=== PATIENT | female | born 1945 | race Caucasian/White ===

== ENCOUNTER 2020-04-10 11:39 | Inpatient (IN) ==
[2020-04-10 13:55] LABS: Basophils # (Auto) 0.01 K/mcL (0.00-0.30); Basophils % (Auto) 0.4 % (0.0-2.0); Eosinophils # (Auto) 0.02 K/mcL (0.00-0.70); Eosinophils % (Auto) 0.7 % (0.0-7.0); Hematocrit 38.2 % (34.1-44.9); Hemoglobin 12.1 g/dL (11.2-15.7); Lymphocytes # (Auto) 0.35 K/mcL (1.50-4.80); Lymphocytes % (Auto) 12.4 % (15.5-49.0); Mean Cell Volume 89.7 fL (80.0-100.0); Mean Corpuscular HGB Conc 31.7 g/dL (31.0-36.0); Mean Platelet Volume 9.8 fL (7.4-10.4); Monocytes # (Auto) 0.27 K/mcL (0.10-0.90); Monocytes % (Auto) 9.5 % (1.0-12.0); Platelet Count 190 K/mcL (140-440); RBC 4.26 M/mcL (3.59-5.38); Red Cell Distribution Width 15.4 % (11.5-14.5); WBC 2.8 K/mcL (4.50-11.00)
[2020-04-10 14:23] LABS: ALT/SGPT 11 U/l (0-40); AST/SGOT 32 U/l (0-37); Albumin 2.9 gm/dL (3.2-5.2); Albumin/Globulin Ratio 0.8 (1.0-2.3); Alkaline Phosphatase 68 U/L (39-117); Bilirubin,Total 0.4 mg/dL (0.0-1.0); Blood Urea Nitrogen 11 mg/dl (8-23); Calcium 8.7 mg/dl (8.6-10.4); Carbon Dioxide 21 mmol/L (22-30); Chloride 99 mmol/L (96-108); Globulin 3.5 gm/dL (2.2-3.7); Glomerular Filtration Rate 90; Glucose 76 mg/dL (70-105)
[2020-04-10 14:59] LABS: Appearance,Urine CLEAR; Bilirubin,Urine NEG (NEG); Color,Urine YELLOW; Glucose,Urine (UA) NEGATIVE (NEG); Ketones,Urine 80 mg/dL (NEG); Leukocyte Esterase,Urine NEG /uL (NEG); Nitrate,Urine NEG (NEG); Protein,Urine NEG (NEG); Specific Gravity,Urine 1.021 (1.000-1.035); Urine Blood NEG mg/dL (<0.03); Urobilinogen,Urine NEG (NEG)
--- NOTE | 2020-04-10 15:00 | XRay Report ---
CLINICAL INFORMATION: weakness COMPARISON: None. TECHNIQUE: PA and Lateral views FINDINGS: The heart size, mediastinum and pulmonary vessels are unremarkable. The lungs are clear. There are no effusions. The bones and soft tissues are within normal limits. IMPRESSION: Normal chest. Interpreted and Authenticated by: Sharif Trejo 04/10/20
--- NOTE | 2020-04-10 17:09 | Emergency Department Note ---
HPI General Chief complaint: Extremity Injury, Lower Stated complaint: left hip pain Time Seen by Provider: 04/10/20 11:50 Source: patient and EMS Mode of arrival: EMS Limitations: no limitations History of Present Illness HPI Narrative: Narrative: 74-year-old female presents with vague complaints. States the only thing that is really bothering her is a sore on her left heel. Her daughter reports that she was discharged from [facility] yesterday. 5 weeks ago she had her left hip repaired. Daughter feels like she was not near ready to come home even though [facility] told her that she was. They told her that she can ambulate 60 to 80 feet and the daughter states she cannot stand or ambulate at all. She also seems generally weak. daughter is also very upset that she developed this pressure ulcer to her left heel about 10 days ago while at the halfway and they just told her about yesterday. She states that heels very sore and unsure if that is why she cannot stand or her left hip seems to be rot ating so that she is also concerned about the hip. Daughter states that there is just no way that she can take care of her at home and this travel trailer when she cannot ambulate and is so weak. She did have one episode of diarrhea last night. No fever or chills. No nausea or vomiting. No cough or cold symptoms. Daughter does state that there were several positive COVID cases at [facility] but they reassured her that they tested her prior to sending her home and that she was negative but the daughter does not know for sure. Related Data Home Medications Medication Instructions Recorded Confirmed ondansetron 4 mg SL Q4HP PRN 04/18/15 03/10/20 bisacodyl 5 mg PO DAILYP PRN 01/26/19 03/10/20 cyanocobalamin (vitamin B-12) 1,000 mcg IM MONTHLY 01/26/19 03/10/20 magnesium hydroxide [Milk of 30 ml PO DAILY 01/26/19 03/10/20 Magnesia] docusate sodium 50 mg PO HS 03/04/20 03/10/20 acetaminophen 650 mg PO Q6H PRN 03/10/20 03/10/20 lidocaine [Blue-Emu Lidocaine 1 patch TOPICAL Q24H PRN 03/10/20 03/10/20 Patch] oxycodone 5 - 10 mg PO BID 03/10/20 03/10/20 oxycodone 5 - 10 mg PO Q4H PRN 03/10/20 03/10/20 Previous Rx's Medication Instructions Recorded aspirin 325 mg PO BID #60 tab 03/04/20 docusate sodium 100 mg PO BID #60 cap 03/04/20 Allergies Allergy/AdvReac Type Severity Reaction Status Date / Time iodine Allergy Severe Anaphylaxis Verified 04/10/20 11:47 Penicillins [PENICILLINS] Allergy Severe Anaphylaxis Verified 04/10/20 11:47 adhesive tape Allergy Intermediate Blister Verified 04/10/20 11:47 red dye [RED DYE] Allergy Mild HIVES Verified 04/10/20 11:47 prochlorperazine AdvReac Severe Other Verified 04/10/20 11:47 Review of Systems ROS ROS Narrative: Narrative: All systems ED: reviewed and negative except as stated. [facility] Narrative Patient History Narrative: Narrative: Medical/Surgical/Family History All Active Problems (Updated 04/10/20 @ 19:13 by ROGELIO Banks) Post-operative pain (Acute) History of total left hip arthroplasty (Acute) History of cerebrovascular accident (Acute) Pain of left heel (Acute) Pressure ulcer of foot (Acute) COVID-19 (Acute) Generalized weakness (Acute) CVA (cerebral vascular accident) (Acute) Multiple sclerosis (Acute) Lymphoma of body of stomach (Acute) Anemia (Acute) Medical History Anemia (Acute) CVA (cerebral vascular accident) (Acute) Lymphoma of body of stomach (Acute) Multiple sclerosis (Acute) Social History Smoking Status: Never smoker Alcohol Intake Frequency: does not drink Substance Use: does not use Exam Narrative Narrative: Narrative: General Limitations: no limitations General appearance: Present alert (Alert to person, place, and time and vaguely situation but does get confused at times. Is very poor historian.) Head Head: Present atraumatic and normocephalic Eye Eye: Present normal appearance; Absent conjunctival injection ENT ENT: Present normal exam, normal oropharynx, mucous membranes moist, TM's normal bilaterally and normal external ear exam Neck Neck: Present normal inspection and trachea midline; Absent lymphadenopathy Chest Chest: Present symmetric chest wall rise Respiratory Respiratory: Present normal lung sounds bilaterally; Absent respiratory distress, rales/crackles, wheezes, stridor and accessory muscle use Cardiovascular Cardiovascular: Present regular rate and normal heart sounds Extremities Extremities: Present normal capillary refill; Absent normal inspection (Left posterior heel does have a 2 cm in diameter stage II pressure ulcer of that is slightly blackened skin. Culture obtained, sent, is pending. There is no red ness or drainage. No warmth. Skin blanches immediately. No other rashes or lesions. Left hip with some mild tenderness with palpation. Skin is pink warm dry and intact. No redness or warmth. No drainage. Healing well.) Neurological Neurological: Present alert Psychiatric Psychiatric: Present normal affect and normal mood Skin Skin: Present warm (WNL), dry and intact Course Course Course Narrative: When the daughter brought her she stated she would be back within an hour and never returned. After several hours we did get a hold of her on the phone. She is crying and states she [place] cannot take care of her mom. Danitza with psychotherapist social worker has been involved. We have called all over. [facility] may consider taking her but she needs to have a COVID test to show its negative prior to admission. They state that they will get in contact with the family tomorrow. All of her labs are unremarkable including CBC, CMP, urinalysis. There is no acute findings on chest x-ray or hip x-ray. After 7 hours we finally got the daughter to come to the hospital so that we could further discuss this with her. Her and her fianc arrived and are very aggressive, angry, and upset and states the absolutely cannot take care of her at home. They are refusing to take her home. They do not understand why we cannot admit her because of a positive COVID test. We discussed with them that there is no qualifications to meet for inpatient criteria and the only way that she could possibly stay as if they are agreeable to pay [id number]. They state they are and psychotherapist social worker is having them signed in agreement. We have requested a bed and will discuss with the hospitalist if this admission is possible. They are absolutely insistent that they cannot take her home under any circumstances. She does note that she normally gets paid by the state to take care of her mom but she just cannot do it. The daughter lives in a 26 foot travel trailer and feels like it is not safe for her mom. They were set up and do have home health as well as physical therapy coming tomorrow and the daughter still refuses. At 1900 we did put a call into the greenhouse superintendent to see if we can possibly admit her as more of a social service admit with their agreement to pay for room and board until they can come up with further plan. At 194, I did speak with Dr. Rangel, hospitalist who agrees to accept this patient, observation MedSurg Vital Signs Vital signs: Vital Signs Temperature 98.0 F 04/10/20 11:39 Pulse Rate 80 04/10/20 11:39 Respiratory Rate 16 04/10/20 11:39 Blood Pressure 116/63 04/10/20 11:39 Pulse Oximetry (%) 97 04/10/20 11:39 Temperature 99.7 F H 04/10/20 18:21 Pulse Rate 78 04/10/20 18:46 Respiratory Rate 16 04/10/20 17:36 Blood Pressure 134/69 04/10/20 18:46 Pulse Oximetry (%) 96 04/10/20 18:46 MDM MDM Narrative Medical decision making narrative: Narrative: Lab Data Result diagrams: 04/10/20 13:15 04/10/20 13:15 Labs: Lab Results 04/10/20 04/10/20 04/10/20 Range/Units 13:15 13:15 13:15 WBC 2.8 L (4.50-11.00) K/mcL RBC 4.26 (3.59-5.38) M/mcL Hgb 12.1 (11.2-15.7) g/dL Hct 38.2 (34.1-44.9) % MCV 89.7 (80.0-100.0) fL MCH 28.4 (26.0-34.0) pg MCHC 31.7 (31.0-36.0) g/dL RDW 15.4 H (11.5-14.5) % Plt Count 190 (140-440) K/mcL MPV 9.8 (7.4-10.4) fL Gran % 77.0 (38.0-78.0) % Lymph % (Auto) 12.4 L (15.5-49.0) % [place] % (Auto) 9.5 (1.0-12.0) % Eos % (Auto) 0.7 (0.0-7.0) % Baso % (Auto) 0.4 (0.0-2.0) % Gran # 2.18 (1.80-8.00) K/mcL Lymph # (Auto) 0.35 L (1.50-4.80) K/mcL [place] # (Auto) 0.27 (0.10-0.90) K/mcL Eos # (Auto) 0.02 (0.00-0.70) K/mcL Baso # (Auto) 0.01 (0.00-0.30) K/mcL VBG Lactic Acid 0.8 (0.5-2.0) mmol/L Sodium 135 (133-145) mmol/L Potassium 3.9 (3.3-5.1) mmol/L Chloride 99 (96-108) mmol/L Carbon Dioxide 21 L (22-30) mmol/L Anion Gap 15.0 (8-16) BUN 11 (8-23) mg/dl Creatinine 0.6 (0.6-1.1) mg/dl GFR Calculation 90 Glucose 76 (70-105) mg/dL Calcium 8.7 (8.6-10.4) mg/dl Total Bilirubin 0.4 (0.0-1.0) mg/dL AST 32 (0-37) U/l ALT 11 (0-40) U/l Alkaline Phosphatase 68 (39-117) U/L Total Protein 6.4 (5.9-8.4) gm/dL Albumin 2.9 L (3.2-5.2) gm/dL Globulin 3.5 (2.2-3.7) gm/dL Albumin/Globulin Ratio 0.8 L (1.0-2.3) Urine Color Urine Appearance Urine pH (5.0-9.0) Ur Specific [place] (1.000-1.035) Urine Protein (NEG) mg/dL Urine Glucose (UA) (NEG) mg/dL Urine Ketones (NEG) mg/dL Urine Occult Blood (<0.03) mg/dL Urine Nitrate (NEG) Urine Bilirubin (NEG) mg/dL Urine Urobilinogen (NEG) mg/dL Ur Leukocyte Esterase (NEG) /uL 04/10/20 Range/Units 13:45 WBC (4.50-11.00) K/mcL RBC (3.59-5.38) M/mcL Hgb (11.2-15.7) g/dL Hct (34.1-44.9) % MCV (80.0-100.0) fL MCH (26.0-34.0) pg MCHC (31.0-36.0) g/dL RDW (11.5-14.5) % Plt Count (140-440) K/mcL MPV (7.4-10.4) fL Gran % (38.0-78.0) % Lymph % (Auto) (15.5-49.0) % [place] % (Auto) (1.0-12.0) % Eos % (Auto) (0.0-7.0) % Baso % (Auto) (0.0-2.0) % Gran # (1.80-8.00) K/mcL Lymph # (Auto) (1.50-4.80) K/mcL [place] # (Auto) (0.10-0.90) K/mcL Eos # (Auto) (0.00-0.70) K/mcL Baso # (Auto) (0.00-0.30) K/mcL VBG Lactic Acid (0.5-2.0) mmol/L Sodium (133-145) mmol/L Potassium (3.3-5.1) mmol/L Chloride (96-108) mmol/L Carbon Dioxide (22-30) mmol/L Anion Gap (8-16) BUN (8-23) mg/dl Creatinine (0.6-1.1) mg/dl GFR Calculation Glucose (70-105) mg/dL Calcium (8.6-10.4) mg/dl Total Bilirubin (0.0-1.0) mg/dL AST (0-37) U/l ALT (0-40) U/l Alkaline Phosphatase (39-117) U/L Total Protein (5.9-8.4) gm/dL Albumin (3.2-5.2) gm/dL Globulin (2.2-3.7) gm/dL Albumin/Globulin Ratio (1.0-2.3) Urine Color Yellow Urine Appearance Clear Urine pH 5.0 (5.0-9.0) Ur Specific [place] 1.021 (1.000-1.035) Urine Protein Neg (NEG) mg/dL Urine Glucose (UA) Negative (NEG) mg/dL Urine Ketones 80 A (NEG) mg/dL Urine Occult Blood Neg (<0.03) mg/dL Urine Nitrate Neg (NEG) Urine Bilirubin Neg (NEG) mg/dL Urine Urobilinogen Neg (NEG) mg/dL Ur Leukocyte Esterase Neg (NEG) /uL Discharge Plan Patient/Caregiver Discharge Instructions Pt seen by DISTRIBUTION CENTER ADMINISTRATOR/PA only: Yes Clinical Impression: Pain of left heel, Pressure ulcer of foot, COVID-19, Generalized weakness Instructions: COVID-19, Wound Healing and Your Diet (ED), Acute Wounds (ED) Activity Restrictions/Additional Instructions: Change the dressing to left heal within the next 3 days. A referral to Dr. Diaz with wound care has been completed. Please call their office to schedule an appointment. You should follow-up with your primary care provider within the next few days for recheck and to try to help establish care at a detention facility if necessary. Patient Disposition: Xfer As Outpt/Obs ([facility]) Condition: Fair Follow up with: Sonia Reilly ARNP [Primary Care Provider] - Prescriptions: No Action ondansetron 4 MG tablet,disintegrating 4 mg SL Q4HP PRN (Reason: Nausea) RF: 0 magnesium hydroxide [Milk of Magnesia] 30 ML suspension 30 ml PO DAILY RF: 0 cyanocobalamin (vitamin B-12) 1,000 MCG/ML solution 1,000 mcg IM MONTHLY RF: 0 bisacodyl 5 MG tablet 5 mg PO DAILYP PRN (Reason: Constipation) RF: 0 docusate sodium 50 mg Capsule 50 mg PO HS RF: 0 aspirin 325 mg Tablet,Delayed Release (Dr/Ec) 325 mg PO BID Qty: 60 RF: 0 docusate sodium 100 mg Capsule 100 mg PO BID Qty: 60 RF: 0 acetaminophen 325 mg Tablet 650 mg PO Q6H PRN (Reason: prophylaxis) RF: 0 lidocaine [Blue-Emu Lidocaine Patch] 4 % Adhesive Patch,Medicated 1 patch TOPICAL Q24H PRN (Reason: Pain) RF: 0 oxycodone 5 mg Tablet 5 - 10 mg PO Q4H PRN (Reason: Pain) RF: 0 oxycodone 5 mg tablet 5 - 10 mg PO BID RF: 0
--- NOTE | 2020-04-10 17:58 | XRay Report ---
CLINICAL INFORMATION: left hip pain, post op, can't bear weight COMPARISON: 03/04/2020 FINDINGS: Left total hip prostheses is in stable alignment without loosening or infection. Mild degenerative change in the right hip and both SI joints noted. No osseous abnormality. Soft tissues are normal. IMPRESSION: Negative exam. Consider septic arthritis Interpreted and Authenticated by: Sharif Trejo 04/10/20
--- NOTE | 2020-04-10 20:16 | Internal Med History&Physical ---
HPI History of Present Illness Patient information: Note initiated : 04/10/20 at 8:08 pm Service Date, if different from initiated Date: [] Patient: Erin Shore a 74 y/o F admitted on for left hip pain. Chief Complaint: [] History of present illness: Ms. Shore is a 74 year old F Presents to the ED with generalized weakness and inability to care for self at home. Patient was discharged from [facility] yesterday after 5 weeks and there after a left hip replacement. Daughter says patient is to be doing well for some time but in past week she just was not doing that well with appetite weakness and some confusion. Patient does have peers a history of vascular dementia and has had several strokes in the past. She also has multiple sclerosis and follows with Dr. Driscoll. Because she came from [facility] test was done and was positive. She denies any cough shortness of breath chest pain. Chest x-ray unremarkable. She does complain of some vague abdominal pain Periumbilical and was made worse by kayleigh crackers. Poor appetite. Has had some intermittent constipation with diarrhea from narcotics and bowel regimen. Case management was working with the patient ED and patient was unable to be placed and daughter feels patient is unsafe at home with her and her trailer. Afraid of her falling and unable to handle her. Review of Systems: Pertinent positives above. Denies headache/nausea/vomiting/chest or abdominal pain/cough/dyspnea. Remaining 10 point review of system reviewed negative PFSH PFSH All Active Problems (Updated 04/10/20 @ 19:13 by ROGELIO Banks) Post-operative pain (Acute) History of total left hip arthroplasty (Acute) History of cerebrovascular accident (Acute) Pain of left heel (Acute) Pressure ulcer of foot (Acute) COVID-19 (Acute) Generalized weakness (Acute) CVA (cerebral vascular accident) (Acute) Multiple sclerosis (Acute) Lymphoma of body of stomach (Acute) Anemia (Acute) Medical History Anemia (Acute) CVA (cerebral vascular accident) (Acute) Lymphoma of body of stomach (Acute) Multiple sclerosis (Acute) Social History (Updated 04/10/20 @ 20:11 by Tin Rangel DO) smoking status: Never smoker alcohol intake frequency: does not drink substance use type: does not use additional history: Past surgical history: J-tube placement Throat surgery Hysterectomy MEDS/ALLERGIES Home Medications and Allergies Home Medications Medication Instructions Recorded Confirmed Type ondansetron 4 mg SL Q4HP PRN 04/18/15 03/10/20 History bisacodyl 5 mg PO DAILYP PRN 01/26/19 03/10/20 History cyanocobalamin (vitamin B-12) 1,000 mcg IM MONTHLY 01/26/19 03/10/20 History magnesium hydroxide [Milk of 30 ml PO DAILY 01/26/19 03/10/20 History Magnesia] aspirin 325 mg PO BID #60 tab 03/04/20 03/10/20 Rx docusate sodium 50 mg PO HS 03/04/20 03/10/20 History docusate sodium 100 mg PO BID #60 cap 03/04/20 03/10/20 Rx acetaminophen 650 mg PO Q6H PRN 03/10/20 03/10/20 History lidocaine [Blue-Emu Lidocaine 1 patch TOPICAL Q24H PRN 03/10/20 03/10/20 History Patch] oxycodone 5 - 10 mg PO BID 03/10/20 03/10/20 History oxycodone 5 - 10 mg PO Q4H PRN 03/10/20 03/10/20 History Allergies Allergy/AdvReac Type Severity Reaction Status Date / Time iodine Allergy Severe Anaphylaxis Verified 04/10/20 11:47 Penicillins [PENICILLINS] Allergy Severe Anaphylaxis Verified 04/10/20 11:47 adhesive tape Allergy Intermediate Blister Verified 04/10/20 11:47 red dye [RED DYE] Allergy Mild HIVES Verified 04/10/20 11:47 prochlorperazine AdvReac Severe Other Verified 04/10/20 11:47 EXAM Constitutional Vitals: Temp Pulse Resp BP Pulse Ox 99.7 F H 78 16 134/69 96 04/10/20 18:21 04/10/20 18:46 04/10/20 17:36 04/10/20 18:46 04/10/20 18:46 Exam: General: Awake, No acute Distress Eyes/N/T: EOMI, PERRL, dry MM Head/Neck: neck supple, normocephalic atraumatic CV: RRR, No murmurs, normal s1/s2 Pulm: Clear b/l, no wheezing/rhonchi/rales Abd: soft, nontender, +BS x4 Ext: no clubbing/cyanosis/edema Neuro: Awake, moves all extremities, follows commands, mild chronic left-sided weakness from previous stroke, sensations intact Skin: warm/dry DATA Data Completed and Pending Labs: Labs from last 24 hours 04/10/20 04/10/20 04/10/20 13:45 13:15 13:15 WBC RBC Hgb Hct MCV MCH MCHC RDW Plt Count MPV Gran % Lymph % (Auto) [place] % (Auto) Eos % (Auto) Baso % (Auto) Gran # Lymph # (Auto) [place] # (Auto) Eos # (Auto) Baso # (Auto) VBG Lactic Acid 0.8 Sodium 135 Potassium 3.9 Chloride 99 Carbon Dioxide 21 L Anion Gap 15.0 BUN 11 Creatinine 0.6 GFR Calculation 90 Glucose 76 Calcium 8.7 Total Bilirubin 0.4 AST 32 ALT 11 Alkaline Phosphatase 68 Total Protein 6.4 Albumin 2.9 L Globulin 3.5 Albumin/Globulin Ratio 0.8 L Urine Color Yellow Urine Appearance Clear Urine pH 5.0 Ur Specific [place] 1.021 Urine Protein Neg Urine Glucose (UA) Negative Urine Ketones 80 A Urine Occult Blood Neg Urine Nitrate Neg Urine Bilirubin Neg Urine Urobilinogen Neg Ur Leukocyte Esterase Neg 04/10/20 13:15 WBC 2.8 L RBC 4.26 Hgb 12.1 Hct 38.2 MCV 89.7 MCH 28.4 MCHC 31.7 RDW 15.4 H Plt Count 190 MPV 9.8 Gran % 77.0 Lymph % (Auto) 12.4 L [place] % (Auto) 9.5 Eos % (Auto) 0.7 Baso % (Auto) 0.4 Gran # 2.18 Lymph # (Auto) 0.35 L [place] # (Auto) 0.27 Eos # (Auto) 0.02 Baso # (Auto) 0.01 VBG Lactic Acid Sodium Potassium Chloride Carbon Dioxide Anion Gap BUN Creatinine GFR Calculation Glucose Calcium Total Bilirubin AST ALT Alkaline Phosphatase Total Protein Albumin Globulin Albumin/Globulin Ratio Urine Color Urine Appearance Urine pH Ur Specific [place] Urine Protein Urine Glucose (UA) Urine Ketones Urine Occult Blood Urine Nitrate Urine Bilirubin Urine Urobilinogen Ur Leukocyte Esterase A/P Narrative A/P Narrative: A: *Generalized weakness/deconditioning/debility/inability to care for self at home: *Left hip replacement 1 month ago: Has been at SNF since then *COVID-19 (+): Incidental finding, testing done for placement protocol -on room air, cxr unremarkable *Dementia, likely vascular, mild: h/o several CVA's -has had some intermittent confusion per daughter in past week. *MS: follow with Dr. Driscoll *CVA, multiple, w/ residual left-sided weakness, mild: *h/o gastric B-cell lymphoma/Pancytopenia: Has followed with heme-onc in the past *?GERD: *Left heel pressure ulcer * P: -pt/ot -CM for placement -antacids/H2 -covid precautions -wound care, heel monitor -ppx: Lovenox Full code Time Spent With Patient Time: Total time spent is greater than 50% in coordination of care (as documented) at patient's floor/unit and/or counseling patient:
[2020-04-10] MEDS ORDERED: IPRATROPIUM/ALBUTEROL 3 ML AMPUL.NEB NEB PRN (21:48)
[2020-04-10] MEDS ORDERED: MAGNESIUM SULFATE 2 GM/50 ML BAG IV PRN (21:48)
[2020-04-10] MEDS ORDERED: POLYETHYLENE GLYCOL 3350 17 GM PACKET PO PRN (21:48)
[2020-04-10] MEDS ORDERED: 0.9 % SODIUM CHLORIDE 1,000 ML IV SCH (21:48)
[2020-04-10] MEDS ORDERED: ACETAMINOPHEN 325 MG TABLET PO PRN (21:48)
[2020-04-10] MEDS ORDERED: ONDANSETRON 4 MG/2 ML VIAL IV PRN (21:48)
[2020-04-10] MEDS ORDERED: POTASSIUM CHLORIDE 40 MEQ in DEXTROSE 5% IN WATER 500 ML IV PRN (21:48)
[2020-04-10] MEDS ORDERED: POTASSIUM CHLORIDE 20 MEQ TABLET PO PRN ×2 (21:48)
[2020-04-10] MEDS ORDERED: CALCIUM CARBONATE 500 MG TAB.CHEW CHEWED PRN (21:48)
[2020-04-10] MEDS ORDERED: SENNOSIDES 1 TABLET PO PRN (21:48)
[2020-04-10] MEDS ORDERED: CALCIUM CARBONATE 500 MG TAB.CHEW CHEWED ONE (21:48)
[2020-04-10] MEDS ORDERED: MAG HYDROX/AL HYDROX/SIMETH 30 ML ORAL.SUSP PO PRN (21:48)
[2020-04-10] MEDS: DOCUSATE SODIUM 100 MG CAPSULE PO SCH (23:47)
[2020-04-10] MEDS: 0.9 % SODIUM CHLORIDE 10 ML SYRINGE IV SCH (23:47)
[2020-04-11] MEDS: 0.9 % SODIUM CHLORIDE 10 ML SYRINGE IV SCH ×4 (04:34→20:44)
[2020-04-11] MEDS: PANTOPRAZOLE 40 MG TABLET PO SCH (07:04)
--- NOTE | 2020-04-11 07:21 | Internal Med Progress Note ---
SUBJECTIVE Subjective Patient information: Note initiated : 04/11/20 at 7:20 am Service Date, if different from initiated Date: [] Patient: Erin Shore 74 y/o F admitted on 04/10/20 for left hip pain. Chief Complaint: [] Interval history: History of present illness: Ms. Shore is a 74 year old F Presents to the ED with generalized weakness and inability to care for self at home. Patient was discharged from [facility] yesterday after 5 weeks and there after a left hip replacement. Daughter says patient is to be doing well for some time but in past week she just was not doing that well with appetite weakness and some confusion. Patient does have peers a history of vascular dementia and has had several strokes in the past. She also has multiple sclerosis and follows with Dr. Driscoll. Because she came from [facility] test was done and was positive. She denies any cough shortness of breath chest pain. Chest x-ray unremarkable. She does complain of some vague abdominal pain Periumbilical and was made worse by kayleigh crackers. Poor appetite. Has had some intermittent constipation with diarrhea from narcotics and bowel regimen. Case management was working with the patient ED and patient was unable to be pl aced and daughter feels patient is unsafe at home with her and her trailer. Afraid of her falling and unable to handle her. 04/11 Slept fine. States she feels little better today. No new complaints or overnight events. Review of Systems: denies headache/fever/chills/nausea/vomiting/chest or abdominal pain/cough/dyspnea/diarrhea. Otherwise see above. Constitutional Vitals: Vital Signs Temp Pulse Resp BP Pulse Ox 98.8 F 77 16 154/72 95 04/11/20 03:53 04/11/20 03:55 04/11/20 03:53 04/11/20 03:55 04/11/20 03:55 Period Temp Pulse Resp BP Sys/[place] Pulse Ox Last 24 Hr 98.0 F-99.7 F 64-85 16-18 111-168/47-82 92-98 Intake and Output 04/10/20 04/11/20 04/11/20 21:59 05:59 13:59 Intake Total 0 Output Total 2 Balance -2 Weight 65.045 kg Intake & Output: Intake & Output 04/10/20 04/11/20 04/11/20 21:59 05:59 13:59 Intake Total 0 Output Total 2 Balance -2 Weight 65.045 kg Intake: Oral 0 Output: # of times incontinent of urine 2 Other: Stool Size Smear Stool Color Brown Stool Consistency Loose # of times incontinent of 1 Bowels Exam: General: Awake, No acute Distress Eyes/N/T: EOMI, Head/Neck: neck supple, CV: RRR, No murmurs, Pulm: Clear b/l, no wheezing/rhonchi/rales Abd: soft, nontender, +BS x4 Ext: no clubbing/cyanosis/edema Neuro: Awake, moves all extremities, follows commands, mild chronic left-sided weakness from previous stroke, Skin: warm/dry OBJ DATA Labs CBC & Chem 7: 04/10/20 13:15 04/10/20 13:15 Labs: Abnormal Lab Results 04/10/20 04/10/20 04/10/20 13:45 13:15 13:15 WBC 2.8 L RDW 15.4 H Lymph % (Auto) 12.4 L Lymph # (Auto) 0.35 L Carbon Dioxide 21 L Albumin 2.9 L Albumin/Globulin Ratio 0.8 L Urine Ketones 80 A Meds: Medications Acetaminophen (Tylenol) 650 mg PO Q6HP PRN PRN Reason: PAIN/FEVER > 101 Hydrocodone Bitart/Acetaminophen ([place] 5/325mg) 1 tab PO Q4HP PRN PRN Reason: PAIN LEVEL 3-6 Al Hydrox/Mg Hydrox/Simethicone (Maalox) 30 ml PO Q4-6HP PRN PRN Reason: Dyspepsia Albuterol/Ipratropium (Duoneb) 3 ml NEB Q4HP PRN PRN Reason: Shortness Of Breath Calcium Carbonate/Glycine (Tums) 500 mg CHEWED Q4HP PRN PRN Reason: Dyspepsia Docusate Sodium (Colace) 100 mg PO BID [facility] Last Admin: 04/10/20 23:47 Dose: Not Given Documented by: Enoxaparin Sodium (Lovenox) 40 mg SQ DAILY [facility] Potassium Chloride 40 meq/ (Dextrose) 520 mls @ 130 mls/hr IV UD PRN PRN Reason: Potassium < 3 Magnesium Sulfate (Magnesium Sulfate) 2 gm in 50 mls @ 50 mls/hr IV UD PRN PRN Reason: Magnesium </= 1.6 Sodium Chloride (Sodium Chloride 0.9%) 1,000 mls @ 75 mls/hr IV .[id number] [facility] Stop: 04/11/20 11:07 Last Admin: 04/10/20 22:00 Dose: 75 mls/hr Documented by: Ondansetron HCl (Zofran) 4 mg IV Q4HP PRN PRN Reason: Nausea And Vomiting Pantoprazole Sodium (Protonix) 40 mg PO QAMAC [facility] Last Admin: 04/11/20 07:04 Dose: 40 mg Documented by: Pneumococcal Polyvalent Vaccine (Pneumovax 23) 0.5 ml IM .ONCE ONE Stop: 04/12/20 10:01 Polyethylene Glycol (Miralax) 17 gm PO DAILYP PRN PRN Reason: Constipation Potassium Chloride (Kdur) 40 meq PO UD PRN PRN Reason: Potssium is 3-3.5 Potassium Chloride (Kdur) 40 meq PO UD PRN PRN Reason: Potassium < 3 Senna (Senokot) 2 tab PO DAILYP PRN PRN Reason: Constipation Sodium Chloride (Saline Flush) 10 ml IV Q8 [facility] Last Admin: 04/11/20 04:34 Dose: Not Given Documented by: A/P Narrative A/P Narrative: A: *Generalized weakness/deconditioning/debility/inability to care for self at home: *Left hip replacement 1 month ago: Has been at SNF since then *COVID-19 (+): Incidental finding, testing done for placement protocol -on room air, cxr unremarkable *Dementia, likely vascular, mild: h/o several CVA's -has had some intermittent confusion per daughter in past week. *MS: follow with Dr. Driscoll *CVA, multiple, w/ residual left-sided weakness, mild: *h/o gastric B-cell lymphoma/Pancytopenia: Has followed with heme-onc in the past *?GERD: *Left heel pressure ulcer * P: -pt/ot -CM for placement -antacids/ppi -covid precautions -wound care, heel monitor -ppx: Lovenox Full code Time Spent With Patient Time: Total time spent is greater than 50% in coordination of care (as documented) at patient's floor/unit and/or counseling patient: QUALITY VTE Deep Vein Thrombosis/Pulmonary Embolism Present on Admission: No
[2020-04-11] MEDS: DOCUSATE SODIUM 100 MG CAPSULE PO SCH ×2 (08:37→20:02)
[2020-04-11] MEDS: ENOXAPARIN 40 MG/0.4 ML SYRINGE SQ SCH (08:37)
--- NOTE | 2020-04-11 09:34 | XRay Report ---
CLINICAL INFORMATION: left heel ulcer, r/o osteo COMPARISON: None. FINDINGS: Moderate diffuse osteoporosis appreciated. There is no specific radiographic evidence for osteomyelitis. There is heavy ossification of the plantar and Achilles tendon insertion on the calcaneus. Hammertoe deformities first and fifth digits noted with moderate degenerative change second through fifth interphalangeal joints. Plantar soft tissue swelling noted. IMPRESSION: Moderate and there are soft tissue likely representing cellulitis. No plain film evidence of osteomyelitis. Other chronic findings - as described Interpreted and Authenticated by: Sharif Trejo 04/11/20
[2020-04-11] MEDS: COLLAGENASE TOP OINT TUBE 30GM TOPICAL SCH (10:31)
[2020-04-11] MEDS: cefTRIAXone 2 GM in DEXTROSE 5% IN WATER 50 ML IV SCH (11:18)
--- NOTE | 2020-04-11 11:48 | Discharge Summary ---
Discharge Provider Provider Patient information: Note initiated : 04/11/20 at 11:46 am Service Date, if different from initiated Date: [] Patient: Erin Shore 74 y/o F admitted on 04/10/20 for left hip pain. Chief Complaint: [] Date of admission: 04/10/20 21:31 Discharge date: 04/15/20 Primary care physician: Sonia Reilly Consults: 04/10/20 Consult to Physician [CONS] Stat Comment: Consulting Provider: Tin Rangel Reason For Exam: Physician to Consult 04/11/20 08:09 Consult to Physician [CONS] Routine Comment: unstagable pressure injury L. heel Consulting Provider: Judah Cool Reason For Exam: Physician to Consult Discharge Meds Discharge Medications Home Medications ondansetron 4 mg SL Q4HP PRN 04/18/15 [History Confirmed 04/10/20 Last Taken 11/10/18] bisacodyl 5 mg PO DAILYP PRN 01/26/19 [History Confirmed 04/10/20 Last Taken Unknown] cyanocobalamin (vitamin B-12) 1,000 mcg IM MONTHLY 01/26/19 [History Confirmed 04/10/20 Last Taken 02/08/20] magnesium hydroxide [Milk of Magnesia] 30 ml PO DAILY 01/26/19 [History Confirmed 04/10/20 Last Taken 03/03/20 09:00] aspirin 325 mg PO BID #60 tab 03/04/20 [Rx Confirmed 04/10/20 Last Taken Unknown] docusate sodium 50 mg PO HS 03/04/20 [History Confirmed 04/10/20 Last Taken 03/03/20 21:00] docusate sodium 100 mg PO BID #60 cap 03/04/20 [Rx Confirmed 04/10/20 Last Taken Unknown] acetaminophen 650 mg PO Q6H PRN 03/10/20 [History Confirmed 04/10/20 Last Taken Unknown] oxycodone 5 mg PO BID 03/10/20 [History Confirmed 04/10/20 Last Taken Unknown] oxycodone 5 mg PO Q4H PRN 03/10/20 [History Confirmed 04/10/20 Last Taken Unknown] gabapentin 300 mg PO BID 04/10/20 [History Confirmed 04/10/20 Last Taken Unknown] methocarbamol 500 mg PO Q6HP PRN 04/10/20 [History Confirmed 04/10/20 Last Taken Unknown] sennosides [senna] 8.6 mg PO BID 04/10/20 [History Confirmed 04/10/20 Last Taken Unknown] COURSE Hospital Course Hospital course: History of present illness: Ms. Shore is a 74 year old F Presents to the ED with generalized weakness and inability to care for self at home. Patient was discharged from [facility] yesterday after 5 weeks and there after a left hip replacement. Daughter says patient is to be doing well for some time but in past week she just was not doing that well with appetite weakness and some confusion. Patient does have peers a history of vascular dementia and has had several strokes in the past. She also has multiple sclerosis and follows with Dr. Driscoll. Because she came from [facility] test was done and was positive. She denies any cough shortness of breath chest pain. Chest x-ray unremarkable. She does complain of some vague abdominal pain Periumbilical and was made worse by kayleigh crackers. Poor appetite. Has had some intermittent constipation with diarrhea from narcotics and bowel regimen. Case management was working with the patient ED and patient was unable to be pl aced and daughter feels patient is unsafe at home with her and her trailer. Afraid of her falling and unable to handle her. 04/11 Slept fine. States she feels little better today. No new complaints or overnight events. 04/12 No issues overnight. No new complaints . cultures negative. 04/13 No new complaints. No overnight events or new issues. Awaiting placement. 04/14 Doing well. No new events overnight complaints. Awaiting placement. Sounds like the nursing facility she was just discharged from will be unable to take her back. 04/15 No overnight issues or new complaints. Still awaiting placement. A/P Narrative: A: *Generalized weakness/deconditioning/debility/inability to care for self at home: *Left hip replacement 1 month ago: Has been at SNF since then *COVID-19 (+): Incidental finding, testing done for placement protocol -on room air, cxr unremarkable *Left heel pressure ulcer with cellulitis: *Dementia, likely vascular, mild: h/o several CVA's -has had some intermittent confusion per daughter in past week. *MS: follow with Dr. Driscoll *CVA, multiple, w/ residual left-sided weakness, mild: *h/o gastric B-cell lymphoma/Pancytopenia: Has followed with heme-onc in the past *?GERD: Discharge diagnosis: Generalized weakness deconditioning debility inability to care for self. Secondary discharge diagnosis: Left heel ulcer with cellulitis, COVID-19 positive, recent left hip replacement, dementia, multiple sclerosis, stroke with residual left-sided weakness Time Spent with Patient Time attestation: Total time spent providing and/or coordinating discharge services: Time spent: Greater than 30 minutes EXAM Constitutional Vitals: Temp Pulse Resp BP Pulse Ox 97.8 F 82 16 131/62 94 04/11/20 07:20 04/11/20 07:20 04/11/20 03:53 04/11/20 07:20 04/11/20 07:20 Discharge Data Data Completed and Pending Labs on day of discharge: Labs from last 24 hours 04/10/20 04/10/20 04/10/20 13:45 13:15 13:15 WBC RBC Hgb Hct MCV MCH MCHC RDW Plt Count MPV Gran % Lymph % (Auto) [place] % (Auto) Eos % (Auto) Baso % (Auto) Gran # Lymph # (Auto) [place] # (Auto) Eos # (Auto) Baso # (Auto) VBG Lactic Acid 0.8 Sodium 135 Potassium 3.9 Chloride 99 Carbon Dioxide 21 L Anion Gap 15.0 BUN 11 Creatinine 0.6 GFR Calculation 90 Glucose 76 Calcium 8.7 Total Bilirubin 0.4 AST 32 ALT 11 Alkaline Phosphatase 68 Total Protein 6.4 Albumin 2.9 L Globulin 3.5 Albumin/Globulin Ratio 0.8 L Urine Color Yellow Urine Appearance Clear Urine pH 5.0 Ur Specific [place] 1.021 Urine Protein Neg Urine Glucose (UA) Negative Urine Ketones 80 A Urine Occult Blood Neg Urine Nitrate Neg Urine Bilirubin Neg Urine Urobilinogen Neg Ur Leukocyte Esterase Neg 04/10/20 13:15 WBC 2.8 L RBC 4.26 Hgb 12.1 Hct 38.2 MCV 89.7 MCH 28.4 MCHC 31.7 RDW 15.4 H Plt Count 190 MPV 9.8 Gran % 77.0 Lymph % (Auto) 12.4 L [place] % (Auto) 9.5 Eos % (Auto) 0.7 Baso % (Auto) 0.4 Gran # 2.18 Lymph # (Auto) 0.35 L [place] # (Auto) 0.27 Eos # (Auto) 0.02 Baso # (Auto) 0.01 VBG Lactic Acid Sodium Potassium Chloride Carbon Dioxide Anion Gap BUN Creatinine GFR Calculation Glucose Calcium Total Bilirubin AST ALT Alkaline Phosphatase Total Protein Albumin Globulin Albumin/Globulin Ratio Urine Color Urine Appearance Urine pH Ur Specific [place] Urine Protein Urine Glucose (UA) Urine Ketones Urine Occult Blood Urine Nitrate Urine Bilirubin Urine Urobilinogen Ur Leukocyte Esterase Discharge Plan Patient/Caregiver Discharge Instructions Activity: increase activity as tolerated Diet: Regular Diet Instructions: COVID-19, Wound Healing and Your Diet (ED), Acute Wounds (ED) Activity Restrictions/Additional Instructions: Change the dressing to left heal within the next 3 days. A referral to Dr. Diaz with wound care has been completed. Please call their office to schedule an appointment. You should follow-up with your primary care provider within the next few days for recheck and to try to help establish care at a residential facility if necessary. Prescriptions: Continued ondansetron 4 MG tablet,disintegrating 4 mg SL Q4HP PRN (Reason: Nausea) RF: 0 magnesium hydroxide [Milk of Magnesia] 30 ML suspension 30 ml PO DAILY RF: 0 cyanocobalamin (vitamin B-12) 1,000 MCG/ML solution 1,000 mcg IM MONTHLY RF: 0 bisacodyl 5 MG tablet 5 mg PO DAILYP PRN (Reason: Constipation) RF: 0 docusate sodium 50 mg Capsule 50 mg PO HS RF: 0 aspirin 325 mg Tablet,Delayed Release (Dr/Ec) 325 mg PO BID Qty: 60 RF: 0 docusate sodium 100 mg Capsule 100 mg PO BID Qty: 60 RF: 0 acetaminophen 325 mg Tablet 650 mg PO Q6H PRN (Reason: prophylaxis) RF: 0 oxycodone 5 mg Tablet 5 mg PO Q4H PRN (Reason: Pain) RF: 0 oxycodone 5 mg tablet 5 mg PO BID RF: 0 methocarbamol 500 mg tablet 500 mg PO Q6HP PRN (Reason: Pain) RF: 0 sennosides [senna] 8.6 mg Tablet 8.6 mg PO BID RF: 0 gabapentin 300 mg capsule 300 mg PO BID RF: 0 Follow Up Plan Follow up with: Judah Cool MD [Physician] - Sonia Reilly ARNP [Primary Care Provider] - Patient Disposition: Xfer As Swing Bed (TS) Prognosis: Undetermined Rehab Potential: Fair I certify that the patient requires SNF services: Yes Overall status at discharge: patient is progressing back to baseline Discharge Orders: Discharge Order (Routine); Ordered 04/15/20 [facility]in Thrombosis/Pulmonary Embolism Present on Admission: No
--- NOTE | 2020-04-11 20:15 | General Surgery Consult Note ---
HPI Data of Consult Consult date: 04/11/20 Requesting physician: Tin Rangel Primary Care Provider: Sonia Reilly Consult Narrative cc:: CC: Tin Rangel I saw this patient in room 119 along with Adia, wound care nurse for a pressure ulcer of LEFT posterior heel . PFSH PFSH All Active Problems Post-operative pain (Acute) History of total left hip arthroplasty (Acute) History of cerebrovascular accident (Acute) Pain of left heel (Acute) Pressure ulcer of foot (Acute) COVID-19 (Acute) Generalized weakness (Acute) CVA (cerebral vascular accident) (Acute) Multiple sclerosis (Acute) Lymphoma of body of stomach (Acute) Anemia (Acute) Medical History Anemia (Acute) CVA (cerebral vascular accident) (Acute) Lymphoma of body of stomach (Acute) Multiple sclerosis (Acute) Social History smoking status: Never smoker alcohol intake frequency: does not drink substance use type: does not use additional history: Past surgical history: J-tube placement Throat surgery Hysterectomy MEDS/ALLERGIES Home Medications and Allergies Home Medications Medication Instructions Recorded Confirmed Type ondansetron 4 mg SL Q4HP PRN 04/18/15 04/10/20 History bisacodyl 5 mg PO DAILYP PRN 01/26/19 04/10/20 History cyanocobalamin (vitamin B-12) 1,000 mcg IM MONTHLY 01/26/19 04/10/20 History magnesium hydroxide [Milk of 30 ml PO DAILY 01/26/19 04/10/20 History Magnesia] aspirin 325 mg PO BID #60 tab 03/04/20 04/10/20 Rx docusate sodium 50 mg PO HS 03/04/20 04/10/20 History docusate sodium 100 mg PO BID #60 cap 03/04/20 04/10/20 Rx acetaminophen 650 mg PO Q6H PRN 03/10/20 04/10/20 History oxycodone 5 mg PO BID 03/10/20 04/10/20 History oxycodone 5 mg PO Q4H PRN 03/10/20 04/10/20 History gabapentin 300 mg PO BID 04/10/20 04/10/20 History methocarbamol 500 mg PO Q6HP PRN 04/10/20 04/10/20 History sennosides [senna] 8.6 mg PO BID 04/10/20 04/10/20 History cephalexin [Keflex] 500 mg PO QID #20 cap 04/11/20 Rx Allergies Allergy/AdvReac Type Severity Reaction Status Date / Time iodine Allergy Severe Anaphylaxis Verified 04/10/20 11:47 Penicillins [PENICILLINS] Allergy Severe Anaphylaxis Verified 04/10/20 11:47 adhesive tape Allergy Intermediate Blister Verified 04/10/20 11:47 red dye [RED DYE] Allergy Mild HIVES Verified 04/10/20 11:47 prochlorperazine AdvReac Severe Other Verified 04/10/20 11:47 Physical Examination Vital Signs Vital signs: Temp Pulse Resp BP Pulse Ox 97.9 F 81 16 143/88 97 04/11/20 15:36 04/11/20 15:36 04/11/20 15:36 04/11/20 15:36 04/11/20 15:36 General physical appearance General physical exam: no pain and chronically ill Eyes Eye exam: normal ocular movement ENT ENT exam: normal pinna, normal nares and no congestion Head Head exam IM: Present normal inspection and normocephalic Neck Neck exam: no masses, trachea midline and no venous distension Cardiovascular Cardiovascular exam IM: Present normal rate and rhythm Respiratory Respiratory exam: normal expansion, normal respiratory effort and clear to auscultation Abdomen Abdomen: Present soft, non tender and bowel sounds Integumentary Integumentary: Present other (Dry DTI Pressure ulcer LEFT posterior heel . ) Musculoskeletal Musculoskeletal: Present other (In bed. Limited mobility h/o CVA in past) Psychiatric Psychiatric: Present oriented to time, oriented to person, oriented to place and speech is normal Results Labs Result diagrams: 04/10/20 13:15 04/10/20 13:15 Labs: All other labs normal. A/P Narrative A/P Narrative: Assessment; COVID 19 Positive but Asymptomatic Deconditioning LEFT posterior heel DTI, PU Thick black dry necrotic eschar CVA h/o gastric Lymphoma Plan: Conservative management for PU Chemical debridement with SANTYL F/U at wound care center after discharge Wound care plan reviewed with nurse and patient and d/w Dr. Rangel, Hospitalist Physician. Time Spent With Patient Time: Total time spent is greater than 50% in coordination of care (as documented) at patient's floor/unit and/or counseling patient: Total time spent with greater than 50% in coordination of care (as documented) at patient's floor/unit and/or counseling patient:: 15 - 24 minutes
[2020-04-12] MEDS: 0.9 % SODIUM CHLORIDE 10 ML SYRINGE IV SCH ×3 (04:21→23:19)
[2020-04-12] MEDS: PANTOPRAZOLE 40 MG TABLET PO SCH (07:08)
--- NOTE | 2020-04-12 07:55 | Internal Med Progress Note ---
SUBJECTIVE Subjective Patient information: Note initiated : 04/12/20 at 7:54 am Service Date, if different from initiated Date: [] Patient: Erin Shore 74 y/o F admitted on 04/10/20 for left hip pain. Chief Complaint: [] Interval history: History of present illness: Ms. Shore is a 74 year old F Presents to the ED with generalized weakness and inability to care for self at home. Patient was discharged from [facility] yesterday after 5 weeks and there after a left hip replacement. Daughter says patient is to be doing well for some time but in past week she just was not doing that well with appetite weakness and some confusion. Patient does have peers a history of vascular dementia and has had several strokes in the past. She also has multiple sclerosis and follows with Dr. Driscoll. Because she came from [facility] test was done and was positive. She denies any cough shortness of breath chest pain. Chest x-ray unremarkable. She does complain of some vague abdominal pain Periumbilical and was made worse by kayleigh crackers. Poor appetite. Has had some intermittent constipation with diarrhea from narcotics and bowel regimen. Case management was working with the patient ED and patient was unable to be pl aced and daughter feels patient is unsafe at home with her and her trailer. Afraid of her falling and unable to handle her. 04/11 Slept fine. States she feels little better today. No new complaints or overnight events. 04/12 No issues overnight. No new complaints . cultures negative. Review of Systems: denies headache/fever/chills/nausea/vomiting/chest or abdominal pain/cough/dyspnea/diarrhea. Otherwise see above. Constitutional Vitals: Vital Signs Temp Pulse Resp BP Pulse Ox 97.0 F 74 18 148/72 97 04/12/20 07:00 04/12/20 07:00 04/12/20 07:00 04/12/20 07:00 04/12/20 07:00 Period Temp Pulse Resp BP Sys/Med[place]in Pulse Ox Last 24 Hr 97.0 F-98.9 F 70-99 12-18 135-161/60-94 97-100 Intake and Output 04/11/20 04/12/20 04/12/20 21:59 05:59 13:59 Intake Total 60 90 Output Total 151 Balance 60 -61 Weight 64.319 kg Intake & Output: Intake & Output 04/11/20 04/12/20 04/12/20 21:59 05:59 13:59 Intake Total 60 90 Output Total 151 Balance 60 -61 Weight 64.319 kg Intake: Oral 60 90 Output: Void Amount 150 # of times incontinent of urine 1 Other: Meal Dinner Percent of Meal Consumed 25% Urine Appearance Clear Clear Urine Color Dark Yellow Dark Yellow Urine Odor Normal Exam: General: Awake, No acute Distress Eyes/N/T: EOMI, Head/Neck: neck supple, CV: RRR, No murmurs, Pulm: Clear b/l, no wheezing/rhonchi/rales Abd: soft, nontender, +BS x4 Ext: no clubbing/cyanosis/edema Neuro: Awake, moves all extremities, follows commands, mild chronic left-sided weakness from previous stroke, Skin: warm/dry OBJ DATA Labs CBC & Chem 7: 04/10/20 13:15 04/10/20 13:15 Labs: Abnormal Lab Results 04/10/20 04/10/20 04/10/20 13:45 13:15 13:15 WBC 2.8 L RDW 15.4 H Lymph % (Auto) 12.4 L Lymph # (Auto) 0.35 L Carbon Dioxide 21 L Albumin 2.9 L Albumin/Globulin Ratio 0.8 L Urine Ketones 80 A Meds: Medications Acetaminophen (Tylenol) 650 mg PO Q6HP PRN PRN Reason: PAIN/FEVER > 101 Last Admin: 04/11/20 19:56 Dose: 650 mg Documented by: Hydrocodone Bitart/Acetaminophen ([place] 5/325mg) 1 tab PO Q4HP PRN PRN Reason: PAIN LEVEL 3-6 Al Hydrox/Mg Hydrox/Simethicone (Maalox) 30 ml PO Q4-6HP PRN PRN Reason: Dyspepsia Albuterol/Ipratropium (Duoneb) 3 ml NEB Q4HP PRN PRN Reason: Shortness Of Breath Calcium Carbonate/Glycine (Tums) 500 mg CHEWED Q4HP PRN PRN Reason: Dyspepsia Collagenase (Santyl Top Oint) 1 dose TOPICAL DAILY DA Last Admin: 04/11/20 10:31 Dose: 1 dose Documented by: Docusate Sodium (Colace) 100 mg PO BID [facility] Last Admin: 04/11/20 20:02 Dose: 100 mg Documented by: Enoxaparin Sodium (Lovenox) 40 mg SQ DAILY [facility] Last Admin: 04/11/20 08:37 Dose: 40 mg Documented by: Potassium Chloride 40 meq/ (Dextrose) 520 mls @ 130 mls/hr IV UD PRN PRN Reason: Potassium < 3 Magnesium Sulfate (Magnesium Sulfate) 2 gm in 50 mls @ 50 mls/hr IV UD PRN PRN Reason: Magnesium </= 1.6 Ceftriaxone Sodium 2 gm/ (Dextrose) 50 mls @ 100 mls/hr IV Q24H [facility]; Protocol Last Admin: 04/11/20 11:18 Dose: 100 mls/hr Documented by: Ondansetron HCl (Zofran) 4 mg IV Q4HP PRN PRN Reason: Nausea And Vomiting Pantoprazole Sodium (Protonix) 40 mg PO QAMAC [facility] Last Admin: 04/12/20 07:08 Dose: 40 mg Documented by: Pneumococcal Polyvalent Vaccine (Pneumovax 23) 0.5 ml IM .ONCE ONE Stop: 04/12/20 10:01 Polyethylene Glycol (Miralax) 17 gm PO DAILYP PRN PRN Reason: Constipation Potassium Chloride (Kdur) 40 meq PO UD PRN PRN Reason: Potssium is 3-3.5 Potassium Chloride (Kdur) 40 meq PO UD PRN PRN Reason: Potassium < 3 Senna (Senokot) 2 tab PO DAILYP PRN PRN Reason: Constipation Sodium Chloride (Saline Flush) 10 ml IV Q8 [facility] Last Admin: 04/12/20 04:21 Dose: 10 ml Documented by: A/P Narrative A/P Narrative: A: *Generalized weakness/deconditioning/debility/inability to care for self at home: *Left hip replacement 1 month ago: Has been at SNF since then *COVID-19 (+): Incidental finding, testing done for placement protocol -on room air, cxr unremarkable *Left heel pressure ulcer with cellulitis: *Dementia, likely vascular, mild: h/o several CVA's -has had some intermittent confusion per daughter in past week. *MS: follow with Dr. Driscoll *CVA, multiple, w/ residual left-sided weakness, mild: *h/o gastric B-cell lymphoma/Pancytopenia: Has followed with heme-onc in the past *?GERD: * P: -abx -pt/ot -CM for placement -antacids/ppi -covid precautions -wound care/Dr. Cool -ppx: Lovenox Full code Time Spent With Patient Time: Total time spent is greater than 50% in coordination of care (as documented) at patient's floor/unit and/or counseling patient: QUALITY VTE Deep Vein Thrombosis/Pulmonary Embolism Present on Admission: No
[2020-04-12] MEDS: ENOXAPARIN 40 MG/0.4 ML SYRINGE SQ SCH (09:14)
[2020-04-12] MEDS: cefTRIAXone 2 GM in DEXTROSE 5% IN WATER 50 ML IV SCH (09:14)
[2020-04-12] MEDS: DOCUSATE SODIUM 100 MG CAPSULE PO SCH ×2 (09:15→20:45)
[2020-04-12] MEDS: COLLAGENASE TOP OINT TUBE 30GM TOPICAL SCH (09:15)
[2020-04-12] MEDS ORDERED: PNEUMOCOCCAL 23-VAL P-SAC VAC 0.5 ML SYRINGE IM ONE (10:00)
[2020-04-12] MEDS ORDERED: MELATONIN 3 MG TABLET PO PRN (19:53)
[2020-04-13] MEDS: 0.9 % SODIUM CHLORIDE 10 ML SYRINGE IV SCH ×3 (05:23→21:09)
[2020-04-13] MEDS: PANTOPRAZOLE 40 MG TABLET PO SCH (07:03)
--- NOTE | 2020-04-13 07:47 | Internal Med Progress Note ---
SUBJECTIVE Subjective Patient information: Note initiated : 04/13/20 at 7:45 am Service Date, if different from initiated Date: [] Patient: Erin Shore a 74 y/o F admitted on 04/10/20 for left hip pain. Chief Complaint: [] Interval history: History of present illness: Ms. Shore is a 74 year old F Presents to the ED with generalized weakness and inability to care for self at home. Patient was discharged from [facility] yesterday after 5 weeks and there after a left hip replacement. Daughter says patient is to be doing well for some time but in past week she just was not doing that well with appetite weakness and some confusion. Patient does have peers a history of vascular dementia and has had several strokes in the past. She also has multiple sclerosis and follows with Dr. Driscoll. Because she came from [facility] test was done and was positive. She denies any cough shortness of breath chest pain. Chest x-ray unremarkable. She does complain of some vague abdominal pain Periumbilical and was made worse by kayleigh crackers. Poor appetite. Has had some intermittent constipation with diarrhea from narcotics and bowel regimen. Case management was working with the patient ED and patient was unable to be pl aced and daughter feels patient is unsafe at home with her and her trailer. Afraid of her falling and unable to handle her. 04/11 Slept fine. States she feels little better today. No new complaints or overnight events. 04/12 No issues overnight. No new complaints . cultures negative. 04/13 No new complaints. No overnight events or new issues. Awaiting placement. Review of Systems: denies headache/fever/chills/nausea/vomiting/chest or abdominal pain/cough/dyspnea/diarrhea. Otherwise see above. Constitutional Vitals: Vital Signs Temp Pulse Resp BP Pulse Ox 99.0 F 80 18 158/78 98 04/13/20 04:00 04/13/20 04:00 04/13/20 04:00 04/13/20 04:00 04/13/20 04:00 Period Temp Pulse Resp BP Sys/Medellin Pulse Ox Last 24 Hr 97.0 F-99.0 F 68-88 16-18 143-158/70-88 93-99 Intake and Output 04/12/20 04/13/20 04/13/20 21:59 05:59 13:59 Intake Total 200 240 Balance 200 240 Weight 64.501 kg Intake & Output: Intake & Output 04/12/20 04/13/20 04/13/20 21:59 05:59 13:59 Intake Total 200 240 Balance 200 240 Weight 64.501 kg Intake: Oral 200 240 Other: Meal Lunch Percent of Meal Consumed 25% Feeding Ability Assist with Tray Set Up Exam: General: Awake, No acute Distress Eyes/N/T: EOMI, Head/Neck: neck supple, CV: RRR, No murmurs, Pulm: Clear b/l, no wheezing/rhonchi/rales Abd: soft, nontender, +BS x4 Ext: no clubbing/cyanosis/edema Neuro: Awake, moves all extremities, follows commands, mild chronic left-sided weakness from previous stroke, Skin: warm/dry OBJ DATA Labs CBC & Chem 7: 04/10/20 13:15 04/10/20 13:15 Labs: Abnormal Lab Results 04/10/20 04/10/20 04/10/20 13:45 13:15 13:15 WBC 2.8 L RDW 15.4 H Lymph % (Auto) 12.4 L Lymph # (Auto) 0.35 L Carbon Dioxide 21 L Albumin 2.9 L Albumin/Globulin Ratio 0.8 L Urine Ketones 80 A Meds: Medications Acetaminophen (Tylenol) 650 mg PO Q6HP PRN PRN Reason: PAIN/FEVER > 101 Last Admin: 04/11/20 19:56 Dose: 650 mg Documented by: Hydrocodone Bitart/Acetaminophen ([place] 5/325mg) 1 tab PO Q4HP PRN PRN Reason: PAIN LEVEL 3-6 Al Hydrox/Mg Hydrox/Simethicone (Maalox) 30 ml PO Q4-6HP PRN PRN Reason: Dyspepsia Albuterol/Ipratropium (Duoneb) 3 ml NEB Q4HP PRN PRN Reason: Shortness Of Breath Calcium Carbonate/Glycine (Tums) 500 mg CHEWED Q4HP PRN PRN Reason: Dyspepsia Collagenase (Santyl Top Oint) 1 dose TOPICAL DAILY [facility] Last Admin: 04/12/20 09:15 Dose: 1 dose Documented by: Docusate Sodium (Colace) 100 mg PO BID [facility] Last Admin: 04/12/20 20:45 Dose: Not Given Documented by: Enoxaparin Sodium (Lovenox) 40 mg SQ DAILY [facility] Last Admin: 04/12/20 09:14 Dose: 40 mg Documented by: Potassium Chloride 40 meq/ (Dextrose) 520 mls @ 130 mls/hr IV UD PRN PRN Reason: Potassium < 3 Magnesium Sulfate (Magnesium Sulfate) 2 gm in 50 mls @ 50 mls/hr IV UD PRN PRN Reason: Magnesium </= 1.6 Ceftriaxone Sodium 2 gm/ (Dextrose) 50 mls @ 100 mls/hr IV Q24H [facility]; Protocol Last Infusion: 04/12/20 10:21 Dose: Infused Documented by: Melatonin (Melatonin 3mg Tablet) 3 mg PO HSP PRN PRN Reason: Insomnia Ondansetron HCl (Zofran) 4 mg IV Q4HP PRN PRN Reason: Nausea And Vomiting Pantoprazole Sodium (Protonix) 40 mg PO QAMAC [facility] Last Admin: 04/13/20 07:03 Dose: 40 mg Documented by: Polyethylene Glycol (Miralax) 17 gm PO DAILYP PRN PRN Reason: Constipation Potassium Chloride (Kdur) 40 meq PO UD PRN PRN Reason: Potssium is 3-3.5 Potassium Chloride (Kdur) 40 meq PO UD PRN PRN Reason: Potassium < 3 Senna (Senokot) 2 tab PO DAILYP PRN PRN Reason: Constipation Sodium Chloride (Saline Flush) 10 ml IV Q8 [facility] Last Admin: 04/13/20 05:23 Dose: 10 ml Documented by: A/P Narrative A/P Narrative: A: *Generalized weakness/deconditioning/debility/inability to care for self at home: *Left hip replacement 1 month ago: Has been at SNF since then *COVID-19 (+): Incidental finding, testing done for placement protocol -on room air, cxr unremarkable *Left heel pressure ulcer with cellulitis: *Dementia, likely vascular, mild: h/o several CVA's -has had some intermittent confusion per daughter in past week. *MS: follow with Dr. Driscoll *CVA, multiple, w/ residual left-sided weakness, mild: *h/o gastric B-cell lymphoma/Pancytopenia: Has followed with heme-onc in the past *?GERD: P: -abx -pt/ot -CM for placement -antacids/ppi -covid precautions -wound care/Dr. Cool -ppx: Lovenox Full code Time Spent With Patient Time: Total time spent is greater than 50% in coordination of care (as documented) at patient's floor/unit and/or counseling patient: QUALITY VTE Deep Vein Thrombosis/Pulmonary Embolism Present on Admission: No
[2020-04-13] MEDS: DOCUSATE SODIUM 100 MG CAPSULE PO SCH ×2 (09:50→21:09)
[2020-04-13] MEDS: ENOXAPARIN 40 MG/0.4 ML SYRINGE SQ SCH (09:50)
[2020-04-13] MEDS: COLLAGENASE TOP OINT TUBE 30GM TOPICAL SCH (09:51)
[2020-04-13] MEDS: cefTRIAXone 2 GM in DEXTROSE 5% IN WATER 50 ML IV SCH (09:51)
--- NOTE | 2020-04-14 08:12 | Internal Med Progress Note ---
SUBJECTIVE Subjective Patient information: Note initiated : 04/14/20 at 8:11 am Service Date, if different from initiated Date: [] Patient: Erin Shore 74 y/o F admitted on 04/10/20 for left hip pain. Chief Complaint: [] Interval history: History of present illness: Ms. Shore is a 74 year old F Presents to the ED with generalized weakness and inability to care for self at home. Patient was discharged from [facility] yesterday after 5 weeks and there after a left hip replacement. Daughter says patient is to be doing well for some time but in past week she just was not doing that well with appetite weakness and some confusion. Patient does have peers a history of vascular dementia and has had several strokes in the past. She also has multiple sclerosis and follows with Dr. Driscoll. Because she came from [facility] test was done and was positive. She denies any cough shortness of breath chest pain. Chest x-ray unremarkable. She does complain of some vague abdominal pain Periumbilical and was made worse by kayleigh crackers. Poor appetite. Has had some intermittent constipation with diarrhea from narcotics and bowel regimen. Case management was working with the patient ED and patient was unable to be pl aced and daughter feels patient is unsafe at home with her and her trailer. Afraid of her falling and unable to handle her. 04/11 Slept fine. States she feels little better today. No new complaints or overnight events. 04/12 No issues overnight. No new complaints . cultures negative. 04/13 No new complaints. No overnight events or new issues. Awaiting placement. 04/14 Doing well. No new events overnight complaints. Awaiting placement. Sounds like the nursing facility she was just discharged from will be unable to take her back. Review of Systems: denies headache/fever/chills/nausea/vomiting/chest or abdominal pain/cough/dyspnea/diarrhea. Otherwise see above. Constitutional Vitals: Vital Signs Temp Pulse Resp BP Pulse Ox 98.5 F 86 18 132/52 97 04/14/20 07:55 04/14/20 07:55 04/14/20 07:55 04/14/20 07:55 04/14/20 07:55 Period Temp Pulse Resp BP Sys/[place]in Pulse Ox Last 24 Hr 97.5 F-99.6 F 80-92 16-20 117-132/52-76 97-99 Intake and Output 04/13/20 04/14/20 04/14/20 21:59 05:59 13:59 Intake Total 100 480 Output Total 300 0 Balance -200 480 Weight 64.093 kg Intake & Output: Intake & Output 04/13/20 04/14/20 04/14/20 21:59 05:59 13:59 Intake Total 100 480 Output Total 300 0 Balance -200 480 Weight 64.093 kg Intake: Oral 100 480 Output: Void Amount 300 0 Other: Urine Appearance Clear Urine Color Dark Yellow Urine Odor Normal Stool Size Small Small Stool Color Brown Brown Stool Consistency Loose # Bowel Movements 1 0 Exam: General: Awake, No acute Distress Eyes/N/T: EOMI, Head/Neck: neck supple, CV: RRR, No murmurs, Pulm: Clear b/l, no wheezing/rhonchi/rales Abd: soft, nontender, +BS x4 Ext: no clubbing/cyanosis/edema Neuro: Awake, moves all extremities, follows commands, mild chronic left-sided weakness from previous stroke, Skin: warm/dry OBJ DATA Labs CBC & Chem 7: 04/10/20 13:15 04/10/20 13:15 Meds: Medications Acetaminophen (Tylenol) 650 mg PO Q6HP PRN PRN Reason: PAIN/FEVER > 101 Last Admin: 04/11/20 19:56 Dose: 650 mg Documented by: Hydrocodone Bitart/Acetaminophen ([place] 5/325mg) 1 tab PO Q4HP PRN PRN Reason: PAIN LEVEL 3-6 Al Hydrox/Mg Hydrox/Simethicone (Maalox) 30 ml PO Q4-6HP PRN PRN Reason: Dyspepsia Albuterol/Ipratropium (Duoneb) 3 ml NEB Q4HP PRN PRN Reason: Shortness Of Breath Calcium Carbonate/Glycine (Tums) 500 mg CHEWED Q4HP PRN PRN Reason: Dyspepsia Collagenase (Santyl Top Oint) 1 dose TOPICAL DAILY [facility] Last Admin: 04/13/20 09:51 Dose: 1 dose Documented by: Docusate Sodium (Colace) 100 mg PO BID [facility] Last Admin: 04/13/20 21:09 Dose: 100 mg Documented by: Enoxaparin Sodium (Lovenox) 40 mg SQ DAILY [facility] Last Admin: 04/13/20 09:50 Dose: 40 mg Documented by: Potassium Chloride 40 meq/ (Dextrose) 520 mls @ 130 mls/hr IV UD PRN PRN Reason: Potassium < 3 Magnesium Sulfate (Magnesium Sulfate) 2 gm in 50 mls @ 50 mls/hr IV UD PRN PRN Reason: Magnesium </= 1.6 Ceftriaxone Sodium 2 gm/ (Dextrose) 50 mls @ 100 mls/hr IV Q24H [facility]; Protocol Last Infusion: 04/13/20 10:21 Dose: Infused Documented by: Melatonin (Melatonin 3mg Tablet) 3 mg PO HSP PRN PRN Reason: Insomnia Ondansetron HCl (Zofran) 4 mg IV Q4HP PRN PRN Reason: Nausea And Vomiting Pantoprazole Sodium (Protonix) 40 mg PO QAMAC [facility] Last Admin: 04/13/20 07:03 Dose: 40 mg Documented by: Polyethylene Glycol (Miralax) 17 gm PO DAILYP PRN PRN Reason: Constipation Potassium Chloride (Kdur) 40 meq PO UD PRN PRN Reason: Potssium is 3-3.5 Potassium Chloride (Kdur) 40 meq PO UD PRN PRN Reason: Potassium < 3 Senna (Senokot) 2 tab PO DAILYP PRN PRN Reason: Constipation Sodium Chloride (Saline Flush) 10 ml IV Q8 [facility] Last Admin: 04/13/20 21:09 Dose: 10 ml Documented by: A/P Narrative A/P Narrative: A: *Generalized weakness/deconditioning/debility/inability to care for self at home: *Left hip replacement 1 month ago: Has been at SNF since then *COVID-19 (+): Incidental finding, testing done for placement protocol -on room air, cxr unremarkable *Left heel pressure ulcer with cellulitis: *Dementia, likely vascular, mild: h/o several CVA's -has had some intermittent confusion per daughter in past week. *MS: follow with Dr. Driscoll *CVA, multiple, w/ residual left-sided weakness, mild: *h/o gastric B-cell lymphoma/Pancytopenia: Has followed with heme-onc in the past *?GERD: P: -abx -pt/ot -Awaiting placement -antacids/ppi -covid precautions -wound care/Dr. Cool -ppx: Lovenox Full code Time Spent With Patient Time: Total time spent is greater than 50% in coordination of care (as documented) at patient's floor/unit and/or counseling patient: QUALITY VTE Deep Vein Thrombosis/Pulmonary Embolism Present on Admission: No
[2020-04-14] MEDS: PANTOPRAZOLE 40 MG TABLET PO SCH (09:40)
[2020-04-14] MEDS: 0.9 % SODIUM CHLORIDE 10 ML SYRINGE IV SCH ×3 (09:40→21:36)
[2020-04-14] MEDS: DOCUSATE SODIUM 100 MG CAPSULE PO SCH ×2 (09:41→21:36)
[2020-04-14] MEDS: cefTRIAXone 2 GM in DEXTROSE 5% IN WATER 50 ML IV SCH (09:41)
[2020-04-14] MEDS: ENOXAPARIN 40 MG/0.4 ML SYRINGE SQ SCH (09:41)
[2020-04-14] MEDS: COLLAGENASE TOP OINT TUBE 30GM TOPICAL SCH (12:13)
[2020-04-14] MEDS: HYDROcodone/APAP 5/325MG TABLET PO PRN (21:35)
--- NOTE | 2020-04-15 07:45 | Internal Med Progress Note ---
SUBJECTIVE Subjective Patient information: Note initiated : 04/15/20 at 7:43 am Service Date, if different from initiated Date: [] Patient: Erin Shore 74 y/o F admitted on 04/10/20 for left hip pain. Chief Complaint: [] Interval history: History of present illness: Ms. Shore is a 74 year old F Presents to the ED with generalized weakness and inability to care for self at home. Patient was discharged from [facility] yesterday after 5 weeks and there after a left hip replacement. Daughter says patient is to be doing well for some time but in past week she just was not doing that well with appetite weakness and some confusion. Patient does have peers a history of vascular dementia and has had several strokes in the past. She also has multiple sclerosis and follows with Dr. Driscoll. Because she came from [facility] test was done and was positive. She denies any cough shortness of breath chest pain. Chest x-ray unremarkable. She does complain of some vague abdominal pain Periumbilical and was made worse by kayleigh crackers. Poor appetite. Has had some intermittent constipation with diarrhea from narcotics and bowel regimen. Case management was working with the patient ED and patient was unable to be pl aced and daughter feels patient is unsafe at home with her and her trailer. Afraid of her falling and unable to handle her. 04/11 Slept fine. States she feels little better today. No new complaints or overnight events. 04/12 No issues overnight. No new complaints . cultures negative. 04/13 No new complaints. No overnight events or new issues. Awaiting placement. 04/14 Doing well. No new events overnight complaints. Awaiting placement. Sounds like the nursing facility she was just discharged from will be unable to take her back. 04/15 No overnight issues or new complaints. Still awaiting placement. Review of Systems: denies headache/fever/chills/nausea/vomiting/chest or abdominal p ain/cough/dyspnea/diarrhea. Otherwise see above. Constitutional Vitals: Vital Signs Temp Pulse Resp BP Pulse Ox 97.0 F 66 18 120/79 97 04/15/20 07:06 04/15/20 07:06 04/15/20 07:06 04/15/20 07:06 04/15/20 07:06 Period Temp Pulse Resp BP Sys/[place] Pulse Ox Last 24 Hr 97.0 F-98.5 F 66-86 12-18 110-142/52-79 96-99 Intake and Output 04/14/20 04/15/20 04/15/20 21:59 05:59 13:59 Intake Total 360 150 Output Total 2 200 Balance 358 -50 Weight 64.41 kg Intake & Output: Intake & Output 04/14/20 04/15/20 04/15/20 21:59 05:59 13:59 Intake Total 360 150 Output Total 2 200 Balance 358 -50 Weight 64.41 kg Intake: Oral 360 150 Output: Void Amount 200 # of times incontinent of urine 2 Other: Meal Lunch Percent of Meal Consumed 50% Feeding Ability Independent Urine Appearance Clear Urine Color Pale Urine Odor Normal # Voids 1 Exam: General: Awake, No acute Distress Eyes/N/T: EOMI, Head/Neck: neck supple, CV: RRR, No murmurs, Pulm: Clear b/l, no wheezing/rhonchi/rales Abd: soft, nontender, +BS x4 Ext: no clubbing/cyanosis/edema Neuro: Awake, moves all extremities, follows commands, mild chronic left-sided weakness from previous stroke, Skin: warm/dry OBJ DATA Labs CBC & Chem 7: 04/10/20 13:15 04/10/20 13:15 Meds: Medications Acetaminophen (Tylenol) 650 mg PO Q6HP PRN PRN Reason: PAIN/FEVER > 101 Last Admin: 04/11/20 19:56 Dose: 650 mg Documented by: Hydrocodone Bitart/Acetaminophen ([place] 5/325mg) 1 tab PO Q4HP PRN PRN Reason: PAIN LEVEL 3-6 Last Admin: 04/14/20 21:35 Dose: 1 tab Documented by: Al Hydrox/Mg Hydrox/Simethicone (Maalox) 30 ml PO Q4-6HP PRN PRN Reason: Dyspepsia Albuterol/Ipratropium (Duoneb) 3 ml NEB Q4HP PRN PRN Reason: Shortness Of Breath Calcium Carbonate/Glycine (Tums) 500 mg CHEWED Q4HP PRN PRN Reason: Dyspepsia Collagenase (Santyl Top Oint) 1 dose TOPICAL DAILY DA Last Admin: 04/14/20 12:13 Dose: 1 dose Documented by: Docusate Sodium (Colace) 100 mg PO BID [facility] Last Admin: 04/14/20 21:36 Dose: 100 mg Documented by: Enoxaparin Sodium (Lovenox) 40 mg SQ DAILY [facility] Last Admin: 04/14/20 09:41 Dose: 40 mg Documented by: Potassium Chloride 40 meq/ (Dextrose) 520 mls @ 130 mls/hr IV UD PRN PRN Reason: Potassium < 3 Magnesium Sulfate (Magnesium Sulfate) 2 gm in 50 mls @ 50 mls/hr IV UD PRN PRN Reason: Magnesium </= 1.6 Ceftriaxone Sodium 2 gm/ (Dextrose) 50 mls @ 100 mls/hr IV Q24H [facility]; Protocol Last Infusion: 04/14/20 12:14 Dose: Infused Documented by: Melatonin (Melatonin 3mg Tablet) 3 mg PO HSP PRN PRN Reason: Insomnia Ondansetron HCl (Zofran) 4 mg IV Q4HP PRN PRN Reason: Nausea And Vomiting Pantoprazole Sodium (Protonix) 40 mg PO QAMAC [facility] Last Admin: 04/14/20 09:40 Dose: 40 mg Documented by: Polyethylene Glycol (Miralax) 17 gm PO DAILYP PRN PRN Reason: Constipation Potassium Chloride (Kdur) 40 meq PO UD PRN PRN Reason: Potssium is 3-3.5 Potassium Chloride (Kdur) 40 meq PO UD PRN PRN Reason: Potassium < 3 Senna (Senokot) 2 tab PO DAILYP PRN PRN Reason: Constipation Sodium Chloride (Saline Flush) 10 ml IV Q8 [facility] Last Admin: 04/14/20 21:36 Dose: 10 ml Documented by: A/P Narrative A/P Narrative: A: *Generalized weakness/deconditioning/debility/inability to care for self at h ome: *Left hip replacement 1 month ago: Has been at SNF since then *COVID-19 (+): Incidental finding, testing done for placement protocol -on room air, cxr unremarkable *Left heel pressure ulcer with cellulitis: *Dementia, likely vascular, mild: h/o several CVA's -has had some intermittent confusion per daughter in past week. *MS: follow with Dr. Driscoll *CVA, multiple, w/ residual left-sided weakness, mild: *h/o gastric B-cell lymphoma/Pancytopenia: Has followed with heme-onc in the past *?GERD: P: -rocephin to keflex -pt/ot -Awaiting placement -antacids/ppi -covid precautions -wound care/Dr. Cool -ppx: Lovenox Full code Time Spent With Patient Time: Total time spent is greater than 50% in coordination of care (as documented) at patient's floor/unit and/or counseling patient: QUALITY VTE Deep Vein Thrombosis/Pulmonary Embolism Present on Admission: No
[2020-04-15] MEDS: DOCUSATE SODIUM 100 MG CAPSULE PO SCH ×2 (07:52→08:10)
[2020-04-15] MEDS: 0.9 % SODIUM CHLORIDE 10 ML SYRINGE IV SCH (07:52)
[2020-04-15] MEDS: PANTOPRAZOLE 40 MG TABLET PO SCH (07:52)
[2020-04-15] MEDS ORDERED: CEPHALEXIN 500 MG CAPSULE PO SCH (09:00)
[2020-04-15] MEDS: ENOXAPARIN 40 MG/0.4 ML SYRINGE SQ SCH (09:10)
[2020-04-15] MEDS: HYDROcodone/APAP 5/325MG TABLET PO PRN (09:14)
== END 2020-04-15 10:23 | disposition swing bed (61) | DRG 947 ==
LOC: ICU 11:39 → ED 11:39 → ICU 21:30 → OBSVTOIN 21:31 → MEDSUR 04-13 16:08
PROVIDERS: ADMIT Internal Medicine; ATTEND Internal Medicine